=== PATIENT | male | born 1960 | race Caucasian/White ===

== ENCOUNTER 2022-05-23 05:00 | Observation (INO) ==
--- NOTE | 2022-05-15 08:24 | Anesthesiology Consultation ---
Date of Service May 15, 2022 Assessment & Plan (1) Encounter for pre-operative examination: Outpatient joint assessment: Patient is currently scheduled for inpatient pathway. If re-evaluated pending system levels during current pandemic/surgeon requests outpatient pathway, patient is not recommended candidate for outpatient joint program from anesthesia standpoint. Chart Review Chart Review: Acceptable Risk for Surgery and Patient seen in Pre Admission Testing Teaching & Discussion Pre-Anesthesia Teaching/Discussion Notes: Instructed NPO after midnight before surgery, except medications with 15 cc of water. Medication instructions provided according to the PAT guidelines. History Surgery Operation Date: 05/30/22 07:00 Proposed Procedures p Left Total Hip Arthroplasty with Dual Mobility Implants - Theodore Yuan MD Height/Weight Height: 5 ft 9 in Weight: 135.8 kg Allergies Allergy/AdvReac Type Severity Reaction Status Date / Time No Known Allergies Allergy Verified 05/11/22 11:04 Medications Home Medications Medication Instructions Recorded Confirmed Last Taken cyanocobalamin (vitamin B-12) 1,000 mcg IM MONTHLY 05/11/22 05/11/22 Unknown 1,000 mcg/mL injection solution emtricitabine 200 mg-tenofovir 1 tab PO QAM 05/11/22 05/11/22 Unknown alafenamide fumarate 25 mg tablet (Descovy) ferrous sulfate 325 mg (65 mg 325 mg PO QAM 05/11/22 05/11/22 Unknown iron) capsule,extended release pediatric multivitamin 1 tab PO QAM 05/11/22 05/11/22 Unknown (Flintstones Multivitamin chewable tablet) potassium 1 dose PO QAM 05/11/22 05/11/22 Unknown Past Medical History Medical History (Updated 05/15/22 @ 08:21 by Marifer Cordova PA-C) DDD (degenerative disc disease) History of hypertension resolved with wt loss Morbid obesity with BMI of 40.0-44.9, adult Patient denies h/o stroke, seizures, heart attack, heart failure, DM, blood clots or blood transfusions. Exercise / Class Metabolic Activity III < 4 Walking/Shop/Light housework (denies CP or SOB with usual activities, lives in ranch home) Past Family History Family History Other No family history of adverse response to anesthesia Past Surgical History Surgical History H/O gastric sleeve History of appendectomy History of colonoscopy History of left knee replacement History of lumbar fusion History of removal of cyst Rt foot History of tonsillectomy Past Anesthesia History No Hx of Anesthesia Complications and No Family Hx of Anesthesia Complications History of PONV No Hx of PONV and No Hx of Motion Sickness Social History Smoking Status: Former smoker Do You Dip or Chew Tobacco: No Smoking End Date: 20 years ago Hx Alcohol Use: Yes Alcohol type: wine alcohol intake frequency: a few times a week Hx Substance Use: No substance use type: does not use Review of Systems Occasional snoring, denies witnessed apneas. Patient denies chest pain, shortness of breath, dyspnea on exertion, reflux, fever, chills, cough, wheezing, or palpitations. Physical Exam Vital Signs Vitals BP 150/91 P 72 TEMP 98.2 SP02 97% on RA RESP 18 Physical Full cervical extension range of motion without pain TMD < 3 finger breadths Mallampati Score 3 Dentition: intact, denies chipped or loose teeth, caps/crowns, implants or bridges Lungs: normal respiratory effort. Clear throughout to auscultation, no adventitious breath sounds Cardiac: regular rate and rhythm, no murmurs noted Carotid arteries: negative bruit bilat Lab Results Anesthesia Preop Results Results Anesthesia Widget: WBC 5.53 K/ul (4.8-10.8) 05/15/22 Hgb 13.4 g/dl (14.0-18.0) L 05/15/22 Hct 39.4 % (40.1-51.0) L 05/15/22 Plt 192 K/uL (130-400) 05/15/22 Na 139 mmol/L (136-145) 05/15/22 K 3.9 mmol/L (3.5-5.1) 05/15/22 Cl 105 mmol/L (98-107) 05/15/22 CO2 28 mmol/L (21-32) 05/15/22 BUN 16 mg/dl (6-23) 05/15/22 Creat 0.79 mg/dl (0.6-1.4) 05/15/22 Glucose Level 84 mg/dl (70-99(Fasting)) 05/15/22 PT 10.4 Seconds (9.0-12.0) 05/15/22 PTT 25.9 Seconds (21.0-31.0) 05/15/22 INR 1.0 (0.9-1.1) 05/15/22 Urine Color Yellow 05/15/22 Urine Appearance Clear (Clear) 05/15/22 Urine pH 5.5 (4.5-7.5) 05/15/22 Urine Specific [place] 1.021 (1.000-1.030) 05/15/22 Urine Protein Negative (Negative) 05/15/22 Urine Glucose (UA) Negative (Negative) 05/15/22 Urine Ketones Negative (Negative) 05/15/22 Urine Blood 1+ (Negative) H 05/15/22 Urine Nitrite Negative (Negative) 05/15/22 Urine Bilirubin Negative (Negative) 05/15/22 Urine Urobilinogen Negative (Negative) 05/15/22 Urine Leukocyte Esterase Negative (Negative) 05/15/22 Urine WBC (Auto) 1-5 /hpf (0-5) 05/15/22 Urine RBC (Auto) 0-4 /hpf (0-4) 05/15/22 Urine Hyaline Casts (Auto) 1-5 /lpf (0-5) 05/15/22 Urine Epithelial Cells (Auto) 5-10 /lpf (0-5) H 05/15/22 Urine Bacteria (Auto) Negative (Negative) 05/15/22 Blood Type A Positive 05/15/22 Antibody Screen NEGATIVE 05/15/22 Testing Electrocardiogram Date: 05/15/22 NSR with 1st degree AV block, rate 68 bpm Chest X-Ray Date: 05/15/22 Lung volumes are normal. Lungs are clear. There is no pneumothorax or pleural effusion. Cardiac size is normal. Mediastinal contours are normal. There is no evidence for pulmonary edema. IMPRESSION: No acute cardiopulmonary findings. COVID-19 Risk Screen Screening Information COVID-19 Screen Date: 05/15/22 Exposure 21 Days Family/Household +COVID Last 21 Days: No Exposure 10 Days Any COVID Exposure Last 10 Days: No Symptoms Last 10 Days Experienced COVID Sx Last 10 Days: No + COVID 0-90 Days COVID + in Last 0-90 Days: No
[2022-05-23] MEDS ORDERED: LR 60ML/HR IV SCH (06:00)
[2022-05-23] MEDS ORDERED: ROPIVACAINE 0.5% HCL/PF 150 MG, BUPIVACAINE 0.75% MPF 20 ML, EPINEPHrine 0.15 MG, Ketor... INFIL SCH (06:00)
[2022-05-23] MEDS ORDERED: TRANEXAMIC ACID 1,000 MG **IV Pre-op IV SCH (06:00)
[2022-05-23] MEDS ORDERED: TRANEXAMIC ACID 1,000 MG **IV Intra-op IV SCH (06:00)
[2022-05-23] MEDS ORDERED: LR 500ML BOLUS, THEN 15ML/HR IV SCH (06:00)
--- NOTE | 2022-05-23 06:18 | History & Physical Bridge Note ---
Date of Service May 23, 2022 History & Physical Bridge Note I have examined the patient, reviewed the History & Physical and in the interval since the performance of the History & Physical I have noted the following changes of clinical significance:consent obained/site verified. no changes noted
[2022-05-23] MEDS ORDERED: BUPIVACAINE 0.5 % 5 MG/1 ML PF 10ML VIAL ONE (06:24)
[2022-05-23] MEDS ORDERED: MIDAZOLAM HCL 1 MG/ML 2ML VIAL ONE (06:37)
[2022-05-23] MEDS ORDERED: fentaNYL citrate 100 MCG/2 ML VIAL ONE (06:37)
[2022-05-23] MEDS ORDERED: ONDANSETRON INJ 2 MG/ML 2 ML VIAL IV PRN ×2 (07:09→11:12)
[2022-05-23] MEDS ORDERED: PROMETHAZINE HCL 6.25 MG in SODIUM CHLORIDE 0.9% 50 ML IV PRN (07:09)
[2022-05-23] MEDS ORDERED: fentaNYL citrate 100 MCG/2 ML VIAL IV PRN (07:09)
[2022-05-23] MEDS ORDERED: ePHEDrine sulfate 50 MG/ML AMP IV PRN (07:09)
[2022-05-23] MEDS ORDERED: ATROPINE SULFATE 0.1 MG/ML 10ML SYR IV PRN (07:09)
[2022-05-23] MEDS ORDERED: KETAMINE 50 MG/5 ML SYRINGE ONE (07:14)
[2022-05-23] MEDS ORDERED: diphenhydrAMINE 50 MG/ML VIAL ONE (07:23)
[2022-05-23] MEDS ORDERED: PROPOFOL IV EMULSION 10 MG/ML 20 ML VIAL IV ONE (08:42)
[2022-05-23] MEDS ORDERED: VASOPRESSIN 20 UNIT/ML VIAL ONE (08:43)
[2022-05-23] MEDS ORDERED: LIDOCAINE 2% 20 MG/ML 5 ML SYR IV ONE (08:43)
[2022-05-23] MEDS ORDERED: PHENYLEPHRINE HCL 10 MG/ML VIAL ONE (08:43)
--- NOTE | 2022-05-23 09:10 | Post Operative Brief Note ---
Immediate Post Op Note v1 Date of Surgery May 23, 2022 Pre & Post Diagnosis Operation Date: 05/23/22 07:00 Pre-Op Diagnosis: Left Hip End-Stage Osteoarthritis Post-Op Diagnosis: Left Hip End-Stage Osteoarthritis I identified the patient and participated in the time-out.: Yes Procedure Operation Date: 05/23/22 07:00 Actual Procedures p Left Total Hip Arthroplasty with Dual Mobility Implants--Uncemented(Left) - Theodore Yuan MD Surgeon Theodore Yuan MD Prepared Foods Supervisor Nivia/Harsha Estimated Blood Loss 200 Findings Consistent with Post-Op Diagnosis severe DJD/excellent stability will standard implants
--- NOTE | 2022-05-23 09:24 | Operative Report ---
Post Operative Report Pre & Post Diagnosis Operation Date: 05/23/22 07:00 Pre-Op Diagnosis: Left Hip End-Stage Osteoarthritis Post-Op Diagnosis: Left Hip End-Stage Osteoarthritis I identified the patient and participated in the time-out.: Yes Procedure Operation Date: 05/23/22 07:00 Actual Procedures p Left Total Hip Arthroplasty with Dual Mobility Implants--Uncemented(Left) - Theodore Yuan MD Surgeon NAVEED Yuan MD Conversion Developer Nivia/Harsha [place] Estimated Blood Loss 200 Findings Consistent with Post-Op Diagnosis see operative report Specimens see operative report Drains none Complications none Disposition Accompanied Patient To Recovery: Yes Indications This 62 year old male presented to the office complaints of persisting left hip pain. He had tried conservative care measures without improvement. He elected to proceed with surgical intervention after being educated about potential risks and outcomes. Preoperative imaging was obtained. Description of Procedure Patient was administered a spinal anesthetic and then taken to the operating room where he was given sedation. He was prepped and draped in the usual sterile fashion. Please see Dr. Yuan's operative report for specifics of the procedure. I was present for the entire case from initial patient positioning through final wound closure. Assistance was provided in tissue retraction, hemostasis, trial implant placement, final implant placement, and final wound closure. Patient was taken to the recovery room in satisfactory condition. I attest to the content of the Intraoperative Record and any orders documented therein. Any exceptions are noted below.
--- NOTE | 2022-05-23 09:34 | Operative Report (OR) ---
DATE OF PROCEDURE: 05/23/2022 SURGEON: Theodore Yuan M.D. JAVA DEVELOPER: Dr. Gonzáles. SECOND JAVA DEVELOPER: Gurinder Mcleod PA-C PREOPERATIVE DIAGNOSIS: Severe osteoarthritis, left hip. POSTOPERATIVE DIAGNOSIS: Severe osteoarthritis, left hip. OPERATION PERFORMED: Noncemented left total hip arthroplasty. PERIOPERATIVE SITUATION: Medically cleared male with intractable hip pain. At this point in time, he wants to proceed with surgical treatment. He understands the risks and consequences, particularly including instability with his back. Options were discussed about using a dual implant technique if needed. SUMMARY OF IMPLANTS: A size 54 shell acetabular cup, hole eliminator size 25-mm screw, 36 x 54 neutral liner, 4 standard Tri-Lock, 36+5 ceramic head, all standard implants. Dual mobility was not necessary based on the superb stability that was present at the time of EUA. DESCRIPTION OF PROCEDURE: The patient was appropriately identified, site verified, and consent verified. Antibiotics were confirmed as being given. The left lower extremity was prepped and draped in the usual routine fashion. The posterior approach to the hip was then made. Care was taken to protect the deep tissues. The IT band and gluteal flavia fascia was then split and the Charnley retractor placed as he is a very large man. The short external rotators were then released and the capsule was then T'd. The hip was then dislocated and the femoral neck resected. Serial reaming was then carried up to 54 and a 54 cup impacted into appropriate anteversion and inclination. The trial liner was seated. Neck was then delivered into the wound, and using a box spinner, canal finder, and lateralizing rasp, serial broaching up to a size 4 was placed. Trial reduction with standard implants and a +5 head revealed near symmetry and leg lengths and superb excellent stability. As a result, it was deemed appropriate to stick with those implants. The hip was then dislocated and all trial elements were removed. The hole eliminator seated, permanent liner seated, permanent head and stem seated. The hip reduced and it was stable in all planes. The leg lengths were excellent. The wound was then irrigated with Betadine and Pulsavac and then closed in layers using #2 Vicryl, 2-0 Vicryl, and stainless steel clips. Retention sutures were placed. Appropriate dressing applied. The patient was then transferred to recovery room in satisfactory condition having tolerated the procedure well. ESTIMATED BLOOD LOSS: 200 mL. CRYSTALLOID: Per anesthesia. PATHOLOGY: Pending on bone and DVT prophylaxis per protocol. Job ID: [id number] [facility]
--- NOTE | 2022-05-23 09:58 | Anesthesiology Progress Note ---
Date of Service May 23, 2022 Anesthesia Post Procedure Vital Signs Vital Signs: Temp Pulse Pulse Resp BP BP Pulse Ox 05/23/22 09:50 36.4 C L 64 15 130/83 98 05/23/22 09:40 62 12 139/66 100 05/23/22 09:30 57 L 18 126/75 100 05/23/22 09:20 36.5 C 66 12 132/75 99 05/23/22 05:42 37 C 79 18 162/94 H 96 O2 Del Method O2 Flow Rate 05/23/22 09:50 Room Air 05/23/22 09:40 Oxymask 4 05/23/22 09:30 Oxymask 4 05/23/22 09:20 Oxymask 6 05/23/22 05:42 Room Air Pain Intensity Left Hip: Pain Intensity: 6 Transfer of Care Handoff Completed per policy Notes Mental Status: alert / awake / arousable Patient Amnestic to Procedure: Yes Nausea / Vomiting: adequately controlled Pain: adequately controlled Airway Patency, RR, SpO2: stable & adequate BP & HR: stable & adequate Hydration State: stable & adequate Neuraxial Anesthesia: was administered and sensory block is resolving Anesthetic Complications: no major complications apparent and Pt Satisfied with anesthetic care
--- NOTE | 2022-05-23 09:58 | XRay Report ---
XR pelvis 1V supine CLINICAL HISTORY: Status post total left arthroplasty. COMPARISON STUDY: Pelvis and left hip radiographs April 29, 2022. FINDINGS: Alignment of the total left hip arthroplasty is anatomic. There is no periprosthetic fractu re. No unexpected radiopaque foreign bodies present. Skin yeny are partially imaged. There are pos toperative findings within the lumbosacral spine. IMPRESSION: Expected findings following total left hip arthroplasty. ACT 112: Negative or not required by law. Electronically signed by: Abel Hernandez M.D. 05/23/2022 9:57 AM
--- NOTE | 2022-05-23 10:10 | Discharge Summary (DS) ---
DATE OF ADMISSION: 05/23/2022. DATE OF DISCHARGE: Potentially 05/24/2022. CHIEF COMPLAINT: Left hip pain. HISTORY OF PRESENT ILLNESS: Underwent elective left total hip replacement. Hospital course to date h as been uneventful. His postop x-rays look excellent. ALLERGIES: None. PREOP MEDICATIONS: Include vitamins, Descovy. PAST ANESTHESIA HISTORY: Is free. He has had multiple surgeries including spine surgery with fusion and knee replacement. PAST MEDICAL HISTORY: Right hip osteoarthritis, left hip, obesity, low back pain. SURGICAL PROCEDURES: Include tonsillectomy, cyst excision, left knee arthroplasty, gastric bypass beny faby, appendectomy, back fusion. IMAGES: Postop x-rays look excellent. ASSESSMENT: Postoperative total hip replacement on the left. PLAN: For discharge to home tomorrow if he does well with PT/OT. Job ID: [id number]
[2022-05-23] MEDS ORDERED: ALUMINUM/MAGNESIUM SUSP 30 ML UDC PO PRN (11:12)
[2022-05-23] MEDS ORDERED: diphenhydrAMINE 50 MG/ML VIAL IV PRN (11:12)
[2022-05-23] MEDS ORDERED: bisacodyL 10 MG SUPP PR PRN (11:12)
[2022-05-23] MEDS ORDERED: HYDROmorphone INJ 0.5 MG/0.5 ML SYR IV PRN (11:12)
[2022-05-23] MEDS ORDERED: MAGNESIUM HYDROXIDE SUSP 30 ML UDC PO PRN (11:12)
[2022-05-23] MEDS ORDERED: METOCLOPRAMIDE HCL INJ 5 MG/ML 2 ML VIAL IV PRN (11:12)
[2022-05-23] MEDS ORDERED: VANCOMYCIN CONSULT ACTIVE PRN (11:12)
[2022-05-23] MEDS ORDERED: oxyCODONE HCL IR 5 MG TAB (IMMEDIATE RELEASE) PO PRN (11:12)
[2022-05-23] MEDS ORDERED: TAMSULOSIN HCL 0.4 MG CAP PO PRN (11:12)
[2022-05-23] MEDS ORDERED: NALOXONE HCL 0.4 MG/1 ML VIAL/CARP IV PRN (11:12)
[2022-05-23] MEDS: SODIUM CHLORIDE 0.9% 1000ML 1,000 ML IV SCH ×2 (12:22→20:27)
[2022-05-23] MEDS: KETOROLAC TROMETHAMINE 15 MG/ML VIAL IV SCH ×3 (12:34→23:45)
[2022-05-23] MEDS ORDERED: ORTHO WARFARIN NOMOGRAM SCH (14:00)
[2022-05-23] MEDS ORDERED: Nursing to Pharmacy Communication SCH (14:15)
[2022-05-23] MEDS: ACETAMINOPHEN 500 MG TAB PO SCH ×2 (15:31→22:31)
[2022-05-23] MEDS ORDERED: WARFARIN SOD 5 MG TAB PO ONE (16:00)
[2022-05-23] MEDS: FERROUS GLUCONATE 324 MG TAB PO SCH (17:28)
[2022-05-23] MEDS: ASCORBIC ACID 500 MG TAB PO SCH (17:28)
[2022-05-23] MEDS: ceFAZolin 2000MG 2,000 MG/15 ML SYR IV SCH ×2 (17:28→23:45)
[2022-05-23] MEDS ORDERED: VANCOMYCIN HCL 2,000 MG in SODIUM CHLORIDE 0.9% 500 ML IV SCH (19:30)
[2022-05-23] MEDS: DOCUSATE SODIUM 100 MG CAP PO SCH (20:44)
[2022-05-23] MEDS ORDERED: SENNA 8.6 MG TAB PO SCH (21:00)
[2022-05-24] MEDS: ACETAMINOPHEN 500 MG TAB PO SCH (05:17)
[2022-05-24] MEDS: KETOROLAC TROMETHAMINE 15 MG/ML VIAL IV SCH (05:17)
[2022-05-24 07:21] LABS: Basophils # (auto) 0.03 K/uL (0-0.2); Basophils % (auto) 0.3 %; Eosinophils # (auto) 0.02 K/uL (0-0.50); Eosinophils % (auto) 0.2 %; Hemoglobin 12.5 g/dl (14.0-18.0); Immature Granulocytes # (auto) 0.04 K/uL (0.00-0.02); Immature Granulocytes % (auto) 0.4 %; Lymphocytes # (auto) 2.29 K/uL (1.2-3.4); Mean Corpuscular Hemoglobin 33.6 pg (25.0-34.0); Mean Corpuscular Hgb Conc 34.7 g/dL (32.0-36.0); Mean Corpuscular Volume 96.8 fL (80.0-100.0); Mean Platelet Volume 9.5 fL (9.4-12.4); Monocytes # (auto) 0.69 K/uL (0.24-0.82); Monocytes % (auto) 6.6 %; Neutrophils # (auto) 7.32 K/uL (1.4-6.5); Neutrophils % (auto) 70.5 %; Platelet Count 190 K/uL (130-400); RDW Coefficient of Variation 12.7 % (11.5-14.5); RDW Standard Deviation 45.1 fL (36.4-46.3); Red Blood Count 3.72 M/uL (4.63-6.08); White Blood Count 10.39 K/ul (4.8-10.8)
[2022-05-24 07:30] LABS: INR 1.1 (0.9-1.1); Prothrombin Time 11.4 Seconds (9.0-12.0)
--- NOTE | 2022-05-24 07:31 | Progress Notes ---
SUBJECTIVE: The patient did well overnight. He denies any chest pain, shortness of breath, fever, c hills, nausea, vomiting or headache. He was sitting up in the chair. His dressing has been changed and his Prevena wound VAC has been placed. At this point, he feels very comfortable. He notes his hip pain is markedly diminished. OBJECTIVE: On neurovascular check, femoral sciatic nerve is normal. Calves nontender. LABORATORY DATA: A.m. labs are pending. ASSESSMENT AND PLAN: Doing well. Discharge to home today. Will stay with the local nurse, a cousin who lives about a mile away rather than going back to [place] which is [place] based on the weather. H e will return in one week for discontinuation of the Prevena. Dictated, not read. Job ID: [id number]
[2022-05-24] MEDS: FERROUS GLUCONATE 324 MG TAB PO SCH (07:33)
[2022-05-24] MEDS: ASCORBIC ACID 500 MG TAB PO SCH (07:33)
[2022-05-24] MEDS: DOCUSATE SODIUM 100 MG CAP PO SCH (07:34)
[2022-05-24 07:41] LABS: BUN Creatinine Ratio 14.5 (10-20); Calcium 8.2 mg/dl (8.5-10.1); Creatinine Clr Calc Pharmacy 126.7 ml/min; Est GFR (African American) 110.8 ml/min; Est GFR (Non-African American) 95.6 ml/min; Potassium 3.8 mmol/L (3.5-5.1)
[2022-05-24] MEDS ORDERED: dexAMETHasone 10 MG in SYRINGE 0 ML IV SCH (08:00)
--- NOTE | 2022-05-24 08:02 | Orthopedic Progress Note ---
Date of Service May 24, 2022 Assessment & Plan (1) Status post total hip replacement, left: Plan: Patient's dressing was changed by me this morning. Prevena wound VAC was placed. He will leave this in place for the next 7 days. Follow-up in the office with me on Saturday at 1 PM for removal. He is aware. Precautions were reviewed. Prescriptions for Zithromax, Coumadin and Percocet were sent to his pharmacy. He anticipates that he will be staying locally for the night due to the weather. Importance of using his walker and using his abduction pillow was discussed with him. Written discharge instructions were provided. Postop appointment for staple removal in 2 weeks has already been made. He will receive his Coumadin dose today prior to departure. Admission and Anticipated Discharge Date Admission Date: May 23, 2022 Subjective Patient was seen in his room this morning. He has no complaints. He is sitting in a chair and states he is feeling quite well. He is ready to go home today. He denies any chest pain, shortness of breath, nausea, vomiting, or abdominal pain. Review of Systems Review of Systems: Unchanged from yesterday. Physical Exam Physical Exam: General: Well-developed, well-nourished, middle-aged male, in no acute distress. Sitting in the chair. Alert and oriented. Conversive. Skin: Warm and dry with good turgor. Postsurgical dressing is in place. Upon removal, he has scant drainage on the inner dressings. There is no saturation. No active bleeding at this time. [place] are intact. Wound edges are well approximated. Expected postoperative edema. No ecchymosis. Musculoskeletal: Patient has intact motor function to the hip, knee, and ankle. He is able to stand fairly easily from chair to his walker. Neurologic: Gross sensation is intact across the left leg by soft touch. Peripheral pulses are 2+. Results & Data ([facility]) Vital Signs (Past 12 Hours) Vital Signs Temp Pulse Resp BP Pulse Ox O2 Del Method 05/24/22 02:27 36.7 C 68 18 130/81 97 Room Air 05/23/22 22:23 36.8 C 77 18 168/80 H 95 Room Air 05/23/22 19:58 36.9 C 89 18 122/77 96 Room Air Laboratory Results H&H obtained today are 12.5 and 36.0. They are stable. White count 10.39. INR is 1.1. PRP is entirely unremarkable. BUN and creatinine are normal.
[2022-05-24] MEDS ORDERED: MULTIVITAMIN CHEWABLE TAB PO SCH (09:00)
[2022-05-24] MEDS ORDERED: WARFARIN SOD 5 MG TAB PO STA (10:18)
[2022-05-30] MEDS ORDERED: ROPIVACAINE 0.5% HCL/PF 150 MG, BUPIVACAINE 0.75% MPF 20 ML, EPINEPHrine 0.15 MG, Ketor... INFIL SCH (06:00)
== END 2022-05-24 11:24 | disposition home health service (06) ==
LOC: ASU 05:00 → PACUINP 05:00 → 3N 12:00

== ENCOUNTER 2024-04-29 06:42 | Observation (INO) ==
--- NOTE | 2023-09-25 09:41 | PAT Medication Instructions ---
Medication Instructions Date of Service September 25, 2023 Home Medications Medication Instructions Recorded oxycodone-acetaminophen 5 mg-325 1 - 2 tab PO Q6H PRN pain #24 tabs 05/23/22 mg tablet (Percocet) warfarin 2 mg tablet 4 mg (2 x 2 mg) PO DAILY #60 tabs 05/23/22 azithromycin 250 mg tablet See Rx Instructions PO .COMPLEX #6 05/24/22 (Zithromax) tabs Medication List: cyanocobalamin (vitamin B-12) 1,000 mcg/mL injection solution 1,000 mcg IM MONTHLY emtricitabine 200 mg-tenofovir alafenamide fumarate 25 mg tablet (Descovy) 1 tab PO QAM ferrous sulfate 325 mg (65 mg iron) capsule,extended release 325 mg PO QAM pediatric multivitamin (Flintstones Multivitamin chewable tablet) 1 tab PO QAM potassium 1 dose PO QAM oxycodone-acetaminophen 5 mg-325 mg tablet (Percocet) 1 - 2 tab PO Q6H PRN pain warfarin 2 mg tablet 4 mg (2 x 2 mg) PO DAILY Medical Marijuana 1 dose PO DIRECTED PRN Pain metoprolol succinate 50 mg tablet,extended release 24 hr 50 mg PO BID MEDICATION INSTRUCTIONS: Continue as directed cyanocobalamin (vitamin B-12) 1,000 mcg/mL injection solution 1,000 mcg IM MONTHLY ASK your prescriber and surgeon warfarin 2 mg tablet 4 mg (2 x 2 mg) PO DAILY DO NOT take the morning of surgery ferrous sulfate 325 mg (65 mg iron) capsule,extended release 325 mg PO QAM pediatric multivitamin (Flintstones Multivitamin chewable tablet) 1 tab PO QAM potassium 1 dose PO QAM Medical Marijuana 1 dose PO DIRECTED PRN Pain Take morning of surgery With a small sip of water, OTHERWISE NOTHING TO EAT OR DRINK AFTER MIDNIGHT: metoprolol succinate 50 mg tablet,extended release 24 hr 50 mg PO BID emtricitabine 200 mg-tenofovir alafenamide fumarate 25 mg tablet (Descovy) 1 tab PO QAM oxycodone-acetaminophen 5 mg-325 mg tablet (Percocet) 1 - 2 tab PO Q6H PRN pain (if needed) Take evening before surgery metoprolol succinate 50 mg tablet,extended release 24 hr 50 mg PO BID Medical Marijuana 1 dose PO DIRECTED PRN Pain (may use day prior to surgery as needed) oxycodone-acetaminophen 5 mg-325 mg tablet (Percocet) 1 - 2 tab PO Q6H PRN pain Other Notes If you have any questions please call us at [phone] or [phone] or [phone] or [phone]
--- NOTE | 2023-09-30 10:31 | Anesthesiology Consultation ---
Date of Service September 30, 2023 Assessment & Plan (1) Encounter for pre-operative examination: Plan - check coags STAT am DOS. - awaiting cardiology clearance given ongoing work-up: optimization form to be faxed to Dr. Rogel with [facility]. Patient and surgeon's office made aware. - upcoming medical clearance per patient. - Outpatient joint assessment: Patient is currently scheduled for inpatient pathway. If re-evaluated and patient/surgeon requests outpatient pathway, patient is not recommended candidate for outpatient joint program from anesthesia standpoint. Chart Review Chart Review: Pending: Refer to Additional Notes / Consult section and Patient seen in Pre Admission Testing Teaching & Discussion Pre-Anesthesia Teaching/Discussion Notes: Instructed NPO after midnight before surgery, except medications with 15 cc of water. Medication instructions provided according to the PAT guidelines. History Surgery Operation Date: 10/23/23 09:30 Proposed Procedures p Right Total Knee Arthroplasty - Theodore Yuan MD Height/Weight Height: 5 ft 8 in Weight: 142.7 kg Allergies Allergy/AdvReac Type Severity Reaction Status Date / Time No Known Allergies Allergy Verified 09/16/23 15:08 Medications Home Medications Medication Instructions Recorded Confirmed Last Taken cyanocobalamin (vitamin B-12) 1,000 mcg IM MONTHLY 05/11/22 09/16/23 05/21/22 10:30 1,000 mcg/mL injection solution emtricitabine 200 mg-tenofovir 1 tab PO QAM 05/11/22 09/16/23 05/21/22 10:00 alafenamide fumarate 25 mg tablet (Descovy) ferrous sulfate 325 mg (65 mg 325 mg PO QAM 05/11/22 09/16/23 05/21/22 10:00 iron) capsule,extended release pediatric multivitamin 1 tab PO QAM 05/11/22 09/16/23 05/21/22 10:00 (Flintstones Multivitamin chewable tablet) potassium 1 dose PO QAM 05/11/22 09/16/23 05/21/22 10:00 oxycodone-acetaminophen 5 mg-325 1 - 2 tab PO Q6H PRN pain #24 tabs 05/23/22 09/16/23 Unknown mg tablet (Percocet) warfarin 2 mg tablet 4 mg (2 x 2 mg) PO DAILY #60 tabs 05/23/22 09/16/23 Unknown azithromycin 250 mg tablet See Rx Instructions PO .COMPLEX #6 05/24/22 09/16/23 Unknown (Zithromax) tabs Medical Marijuana 1 dose PO DIRECTED PRN Pain 09/16/23 09/16/23 Unknown metoprolol succinate 50 mg 50 mg PO BID 09/16/23 09/16/23 Unknown tablet,extended release 24 hr Past Medical History Medical History (Updated 09/30/23 @ 10:44 by Marifer Cordova PA-C) Atrial fibrillation one episode in Jul 2023 > follows with Dr. 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 Exercise / Class Metabolic Activity II 4-5 Yardwork/Stairs/Walk up hill (denies chest discomfort or shortness of breath with 1 FOS) Past Family History Family History Other No family history of adverse response to anesthesia Past Surgical History Surgical History H/O gastric sleeve History of appendectomy History of colonoscopy History of left knee replacement History of lumbar fusion History of removal of cyst Rt foot History of tonsillectomy History of total hip arthroplasty left 05/23/22 SAB at L4-L5 x 2 attempts. [facility]. Past Anesthesia History No Hx of Anesthesia Complications and No Family Hx of Anesthesia Complications History of PONV No Hx of PONV and No Hx of Motion Sickness Social History Smoking Status: Former smoker Do You Dip or Chew Tobacco: No Smoking End Date: 20 yrs ago Hx Alcohol Use: Yes Alcohol type: beer, wine and hard liquor alcohol intake frequency: a few times a week Hx Substance Use: Yes substance use type: marijuana Substance Use Type Other:: medical card > prn use-advised Last Used Substance: Days (ago) Review of Systems Patient denies chest pain, shortness of breath, dyspnea on exertion, snoring, witnessed apneas, reflux, fever, chills, cough, wheezing, or palpitations. Physical Exam Vital Signs Vitals BP 126/84 P 65 TEMP 97.8 SP02 98% on RA RESP 18 Physical Patient resting comfortably in chair in no acute distress, alert and oriented, responding appropriately throughout visit Full cervical extension range of motion without pain TMD < 3 finger breadths Mallampati Score 3 Dentition: intact, denies chipped or loose teeth, caps/crowns, implants or bridges Lungs: normal respiratory effort. Good air movement, clear throughout to auscultation, no adventitious breath sounds Cardiac: regular rate and rhythm, no murmurs noted Carotid arteries: negative bruit bilat Lab Results Anesthesia Preop Results Results Anesthesia Widget: WBC 5.69 K/ul (4.8-10.8) 09/30/23 Hgb 14.5 g/dl (14.0-18.0) 09/30/23 Hct 43.0 % (42.0-52.0) 09/30/23 Plt 211 K/uL (130-400) 09/30/23 Na 136 mmol/L (136-145) 09/30/23 K 4.0 mmol/L (3.5-5.1) 09/30/23 Cl 104 mmol/L (98-107) 09/30/23 CO2 24 mmol/L (21-32) 09/30/23 BUN 17 mg/dl (6-23) 09/30/23 Creat 0.94 mg/dl (0.6-1.4) 09/30/23 Glucose Level 95 mg/dl (70-99(Fasting)) 09/30/23 PT 10.4 Seconds (9.0-12.0) 09/30/23 PTT 27 Seconds (21-31) 09/30/23 INR 0.9 (0.9-1.1) 09/30/23 Urine Color Yellow 09/30/23 Urine Appearance Clear (Clear) 09/30/23 Urine pH 5.0 (4.5-7.5) 09/30/23 Urine Specific [place] 1.017 (1.000-1.030) 09/30/23 Urine Protein Negative (Negative) 09/30/23 Urine Glucose (UA) Negative (Negative) 09/30/23 Urine Ketones Negative (Negative) 09/30/23 Urine Blood Trace (Negative) H 09/30/23 Urine Nitrite Negative (Negative) 09/30/23 Urine Bilirubin Negative (Negative) 09/30/23 Urine Urobilinogen Negative (Negative) 09/30/23 Urine Leukocyte Esterase Negative (Negative) 09/30/23 Urine WBC (Auto) 0-5 /hpf (0-5) 09/30/23 Urine RBC (Auto) 3-5 /hpf (0-2) H 09/30/23 Urine Hyaline Casts (Auto) 0-2 /lpf (0-2) 09/30/23 Urine Epithelial Cells (Auto) 0-2 /hpf (0-2) 09/30/23 Urine Bacteria (Auto) None Seen (None Seen) 09/30/23 Blood Type A Positive 09/30/23 Antibody Screen NEGATIVE 09/30/23 Testing Electrocardiogram Date: 09/30/23 NSR, rate 61 bpm Chest X-Ray Date: 09/30/23 No acute process. Echocardiogram Date: 07/19/23 EF 55-60% Mild LVH Mild mitral regurgitation Mild aortic regurgitation
--- NOTE | 2024-04-16 14:13 | Anesthesiology Consultation ---
Date of Service April 16, 2024 Assessment & Plan (1) Encounter for pre-operative examination: - cardiology office note 03/24/24: "...cardiac catheterization (11/14/2023)...normal sinus rhythm...[id number] score of 0, he is not on Eliquis...will decrease dose of metoprolol succinate to 50 mg po...advised to have sleep study rule out obstructive sleep apnea, he declined...low to intermediate risk for preoperative cardiac complications for orthopedic knee surgery, I would proceed with surgery because the benefits outweigh the risks. No further cardiac workup is recommended at this point in time..." - cardiology clearance 03/23/24: "...low to intermediate risk..." - patient states had syncopal event over one month ago after standing rapidly- states cardiology has since reduced antihypertensive dose-denies any further episodes syncope or presyncope, denies dizziness. - Outpatient joint assessment: Patient is currently scheduled for inpatient pathway. If re-evaluated and patient/surgeon requests outpatient pathway, patient is not advised candidate for outpatient joint program from anesthesia standpoint. Chart Review Chart Review: Acceptable Risk for Surgery and Patient seen in Pre Admission Testing Teaching & Discussion Pre-Anesthesia Teaching/Discussion Notes: Instructed NPO after midnight before surgery, except medications with 15 cc of water. Medication instructions provided according to the PAT guidelines. History Surgery Operation Date: 10/23/23 09:30 Proposed Procedures p Right Total Knee Arthroplasty - Theodore Yuan MD Operation Date: 04/29/24 09:10 Proposed Procedures p Right Total Knee Arthroplasty - Theodore Yuan MD Height/Weight Height: 5 ft 8 in Weight: 144 kg Allergies Allergy/AdvReac Type Severity Reaction Status Date / Time No Known Allergies Allergy Verified 04/16/24 10:50 Medications Home Medications Medication Instructions Recorded Confirmed Last Taken cyanocobalamin (vitamin B-12) 1,000 mcg IM MONTHLY 05/11/22 04/16/24 05/21/22 10:30 1,000 mcg/mL injection solution emtricitabine 200 mg-tenofovir 1 tab PO QAM 05/11/22 04/16/24 05/21/22 10:00 alafenamide fumarate 25 mg tablet (Descovy) ferrous sulfate 325 mg (65 mg 325 mg PO QAM 1204/16/24 05/21/22 10:00 iron) capsule,extended release pediatric multivitamin 1 tab PO QAM 05/11/22 04/16/24 05/21/22 10:00 (Flintstones Multivitamin chewable tablet) azithromycin 250 mg tablet See Rx Instructions PO .COMPLEX #6 05/24/22 09/16/23 Unknown (Zithromax) tabs Medical Marijuana 1 dose PO DIRECTED PRN Pain 09/16/23 04/16/24 Unknown metoprolol succinate 50 mg 25 mg PO BID 04/16/24 04/16/24 Unknown tablet,extended release 24 hr Past Medical History Medical History (Updated 04/16/24 @ 14:43 by Marifer Cordova PA-C) Atrial fibrillation -warfarin d/c by damage appraiser DDD (degenerative disc disease) History of COVID-19 (~2021) not hospitalized > symptoms resolved History of exposure to HIV partner with HIV diagnosis-on descovy Hypertension controlled, stable per pt Morbid obesity with BMI of 40.0-44.9, adult Patient denies h/o stroke, seizures, heart attack, heart failure, DM, blood clots/DVTs or blood transfusions. Exercise / Class Metabolic Activity II 4-5 Yardwork/Stairs/Walk up hill (denies chest discomfort or shortness of breath with one flight of stairs) Past Family History Family History Other No family history of adverse response to anesthesia Past Surgical History Surgical History H/O gastric sleeve 2016 History of appendectomy History of cardiac cath 12/2023>[facility]/no stents (follows with [facility]) History of colonoscopy History of left knee replacement History of lumbar fusion History of removal of cyst Rt foot History of tonsillectomy History of tooth extraction History of total hip arthroplasty left 05/23/22 SAB at L4-L5 x 2 attempts. [facility]. Past Anesthesia History No Hx of Anesthesia Complications and No Family Hx of Anesthesia Complications History of PONV No Hx of PONV and No Hx of Motion Sickness Social History Smoking Status: Former smoker Do You Dip or Chew Tobacco: No Smoking End Date: 30 +yrs ago Hx Alcohol Use: Yes Alcohol type: beer and wine alcohol intake frequency: a few times a week substance use type: does not use Substance Use Type Other:: medical card > prn use-advised Review of Systems Patient denies chest pain, shortness of breath, dyspnea on exertion, snoring, witnessed apneas, reflux, fever, chills, cough, wheezing, or palpitations. Physical Exam Vital Signs Vitals BP 147/86 P 79 TEMP 98.4 SP02 95% on RA RESP 18 Physical Patient resting comfortably in chair in no acute distress, alert and oriented, responding appropriately throughout visit Full cervical extension range of motion without pain TMD < 3 finger breadths Mallampati Score 3 Dentition: intact, denies chipped or loose teeth, caps/crowns, implants or bridges Lungs: normal respiratory effort. Good air movement, clear throughout to auscultation, no adventitious breath sounds Cardiac: regular rate and rhythm, no murmurs noted Carotid arteries: negative bruit bilat Lab Results Anesthesia Preop Results Results Anesthesia Widget: WBC 6.93 K/ul (4.8-10.8) 04/16/24 Hgb 12.8 g/dl (14.0-18.0) L 04/16/24 Hct 37.3 % (42.0-52.0) L 04/16/24 Plt 180 K/uL (130-400) 04/16/24 Na 137 mmol/L (136-145) 04/16/24 K 4.0 mmol/L (3.5-5.1) 04/16/24 Cl 105 mmol/L (98-107) 04/16/24 CO2 26 mmol/L (21-32) 04/16/24 BUN 12 mg/dl (6-23) 04/16/24 Creat 0.93 mg/dl (0.6-1.4) 04/16/24 Glucose Level 90 mg/dl (70-99(Fasting)) 04/16/24 PT 10.4 Seconds (9.0-12.0) 04/16/24 PTT 25 Seconds (21-31) 04/16/24 INR 1.0 (0.9-1.1) 04/16/24 Urine Color Yellow 04/16/24 Urine Appearance Clear (Clear) 04/16/24 Urine pH 5.5 (4.5-7.5) 04/16/24 Urine Specific [place] 1.017 (1.000-1.030) 04/16/24 Urine Protein Negative (Negative) 04/16/24 Urine Glucose (UA) Negative (Negative) 04/16/24 Urine Ketones Negative (Negative) 04/16/24 Urine Blood Trace (Negative) H 04/16/24 Urine Nitrite Negative (Negative) 04/16/24 Urine Bilirubin Negative (Negative) 04/16/24 Urine Urobilinogen Negative (Negative) 04/16/24 Urine Leukocyte Esterase Negative (Negative) 04/16/24 Urine WBC (Auto) 0-5 /hpf (0-5) 04/16/24 Urine RBC (Auto) 0-2 /hpf (0-2) 04/16/24 Urine Hyaline Casts (Auto) 0-2 /lpf (0-2) 04/16/24 Urine Epithelial Cells (Auto) 0-2 /hpf (0-2) 04/16/24 Urine Bacteria (Auto) None Seen (None Seen) 04/16/24 Blood Type A Positive 04/16/24 Antibody Screen NEGATIVE 04/16/24 Testing Electrocardiogram Date: 09/30/23 NSR, rate 61 bpm Chest X-Ray Date: 09/30/23 No acute process. Echocardiogram Date: 07/19/23 EF 55-60% Mild LVH Mild mitral regurgitation Mild aortic regurgitation Cardiac Catheterization Date: 11/14/23 Left main: minimal luminal irregularities LAD: mild disease; prox LAD to mid LAD 10% stenosis LCx: minimal luminal irregularities RCA: minimal luminal irregularities, proximal tubular 30% stenosis "Mild ectasis, mild CAD"
--- NOTE | 2024-04-29 06:31 | History & Physical Bridge Note ---
Date of Service April 29, 2024 History & Physical Bridge Note I have examined the patient, reviewed the History & Physical and in the interval since the performance of the History & Physical I have noted the following changes of clinical significance: reviewed meds and risks. consent and site verified.no changes noted
[2024-04-29] MEDS: FAMOTIDINE 20 MG TAB PO SCH (07:20)
[2024-04-29] MEDS: ACETAMINOPHEN 500 MG TAB PO SCH ×2 (07:20→13:52)
[2024-04-29] MEDS: LR 500ML BOLUS, THEN 15ML/HR IV SCH (07:21)
[2024-04-29] MEDS: LR 60ML/HR IV SCH (07:21)
[2024-04-29] MEDS ORDERED: MIDAZOLAM HCL 1 MG/ML 2ML VIAL ONE (07:27)
[2024-04-29] MEDS ORDERED: fentaNYL citrate PF 100 MCG/2 ML VIAL ONE (07:27)
[2024-04-29] MEDS ORDERED: PROPOFOL IV EMULSION 10 MG/ML 20 ML VIAL IV ONE ×4 (07:27→10:47)
[2024-04-29] MEDS ORDERED: ATROPINE SULFATE 0.1 MG/ML 10ML SYR IV PRN (08:14)
[2024-04-29] MEDS ORDERED: ONDANSETRON INJ 2 MG/ML 2 ML VIAL IV PRN ×2 (08:14→11:20)
[2024-04-29] MEDS ORDERED: fentaNYL citrate PF 100 MCG/2 ML VIAL IV PRN (08:14)
[2024-04-29] MEDS ORDERED: ePHEDrine sulfate 50 MG/ML AMP IV PRN (08:14)
[2024-04-29] MEDS ORDERED: HYDROmorphone INJ 2 MG/ML SYR/VIAL IV PRN (08:14)
[2024-04-29] MEDS: TRANEXAMIC ACID 1,000 MG **IV Pre-op IV SCH (09:08)
[2024-04-29] MEDS: ceFAZolin 3000MG 3,000 MG/72.5 ML BAG IV SCH (09:26)
[2024-04-29] MEDS ORDERED: KETAMINE HCL 10MG/ML SYR ONE (09:37)
[2024-04-29] MEDS: ORTHO JOINT ANESTHETIC ONE (10:03)
[2024-04-29] MEDS ORDERED: ePHEDrine sulfate 50 MG/ML AMP ONE (10:39)
[2024-04-29] MEDS ORDERED: ONDANSETRON INJ 2 MG/ML 2 ML VIAL ONE (10:42)
[2024-04-29] MEDS: TRANEXAMIC ACID 1,000 MG **IV Intra-op IV SCH (10:44)
[2024-04-29] MEDS: ROPIV 0.5% 246mg, Ketorolac 30mg, EPINEPHrine 0.5mg in NSS INFIL SCH (10:46)
--- NOTE | 2024-04-29 11:08 | Post Operative Brief Note ---
Immediate Post Op Note Date of Surgery April 29, 2024 Pre & Post Diagnosis Operation Date: 04/29/24 08:50 <No d osteoarthritis right knee with flexion varus deformity pre and postop diagnosis same whitley on this case meets the specified criteria> I identified the patient and participated in the time-out.: Yes Procedure Operation Date: 04/29/24 08:50 <No data on this case meets the specified criteria> Cemented right total knee replacement Surgeon Theodore Yuan MD Music Writer Michael/Heron. Estimated Blood Loss 100 Findings Consistent with Post-Op Diagnosis Severe osteoarthritis with marked limitation of knee extension Fluids See anesthesia report Complications None
--- NOTE | 2024-04-29 11:11 | Operative Report ---
Post Operative Report Pre & Post Diagnosis Operation Date: 04/29/24 08:50 <No data on this case meets the specified criteria> Osteoarthritis right knee with flexion varus deformity pre and postop diagnosis same I identified the patient and participated in the time-out.: Yes Procedure Operation Date: 04/29/24 08:50 <No data on this case meets the specified criteria> Cemented right total knee replacement Surgeon Theodore Yuan MD Dermatology Physician Assistant Michael/Heron. Estimated Blood Loss 100 Findings Consistent with Post-Op Diagnosis Severe tricompartmental osteoarthritis particular patellofemoral and medial. Marked varus and flexion deformity Fluids See anesthesia report Specimens Bone pathology Drains None Complications None Indications Severe pain grade 4 changes asked by x-ray failed conservative management Description of Procedure After the patient was appropriate notified site verified consent verified antibiotics confirmed has been given the right lower extremity was prepped and draped use routine fashion. Should be noted he had an external rotation contracture of his hip and a 10 degree flexion contracture of his knee with a marked varus alignment. Tourniquet was inflated to 275 mmHg after exsanguination limb with a rubber urgent bandage for total of 63 minutes. Midline exposure was utilized parapatellar arthrotomy performed had a huge amount of synovitis this was all resected large osteophytes resected all around the margin of the femur and medial tibia. Care was taken to protect the collateral ligaments. The cruciates were resected tibia subluxated the menisci resected. The distal femur was then entered. Distal femur then resected 11 mm proximal tibia 4 mm the extension gap was excellent with a 6 mm spacer. Femur was sized to a 7 appropriate anterior posterior condylar and chamfer cuts made. The flexion gap was checked it was good. Box cut was then made with a size 7 femur. It fit well. Tibia was then broached and reamed for a size 7. 6 mm spacer fit well the knee was stable in full extension mid range flexion full flexion. The patella tracked well. Patella was resected leaving 15 to 16 mm. A 41 button was then seated appropriate holes made. Everything tracked well. Ortho mix was injected all around the knee. All trial elements were then removed the knee soaked in Betadine for 3-1/2 minutes the wound was then irrigated and the permanent cemented into position tibia femur patella in that order at 12 minutes of tourniquet deflated minor bleeding points controlled lecture cautery at 14 minutes knee was flexed there was no major cement removal required the trial spacer was removed there is nothing posteriorly. Was then irrigated again with Pulsavac Betadine and the permanent liner seated the knee reduced and closed at 40 degrees of flexion with #2 Vicryl 2-0 Vicryl and standstill clips. EBL was roughly 100 cc crystalloid per anesthesia pathology pending on bone x-rays pending. Summary of implants size 7 right femur posterior cruciate substituting size 7 rotating platform tray size 41 patella size 7 posterior cruciate substituting insert 6 mm thick rotating platform these are all DePuy ATT UNE knee system. EBL 100 cc crystalloid per anesthesia bone pathology pending x-rays pending. DVT prophylaxis per protocol. I attest to the content of the Intraoperative Record and any orders documented therein. Any exceptions are noted below.
--- NOTE | 2024-04-29 11:13 | Discharge Summary ---
Date of Service April 30, 2024 Admission HPI Per Admitting Provider Severe pain with flexion varus deformity right knee Principal Diagnosis Osteoarthritis right knee Discharge Data Allergies Allergy/AdvReac Type Severity Reaction Status Date / Time No Known Allergies Allergy Verified 04/29/24 07:17 Vaccinations None Consultations None Procedures Performed Operation Date: 04/29/24 08:50 Actual Procedures p Right Total Knee Arthroplasty, Cemented(Right) - Theodore Yuan MD Ordered Studies 04/29/24 05:00 US - OR guided needle placemen Routine Hospital Course (1) Status post right knee replacement: Care management plan for total knee replacement right Total Time Total Time Spent Total Time Spent (In Minutes): 5 Discharge Plan Discharge Items Patient Disposition: Home - Home Health Services Reason For Visit: Right Knee Degenerative Joint Disease Discharge Diagnosis: Status post right knee replacement for osteoarthritis right knee Activity: Per Instructions section Lifting: Wait until after follow-up appointment Bathing: Keep incision dry Sexual Activity: Wait until after follow-up appointment Exercise/Sports: Wait until after follow-up appointment Driving/Machine Use: No driving until cleared by Dr. Yuan Weightbearing: Full weightbearing Non-emergency contact: Surgeon Call non-emergency contact if: you have any medication questions, your temperature is above 101, your wound has increased redness, your wound has increased drainage and your wound pain has increased Follow-up/Referrals: Jean Myers D.O. [Primary Care Provider] - Diet: Regular Addtl Attending Provider Instructions: New Medicine: * You will likely be taking one or more of these medications: 1. Percocet - Take, as directed, when you need it, every four to six hours to control your pain. 2. Iron Sulfate - Take 1x each day for the month after surgery to help you replace the blood lost during surgery. 3. Eliquis - Thins your blood to lessen the chance of forming a blood clot. * The most common side effects of pain medicine and iron are nausea and constipation. If nausea or constipation is too much of a problem or if you have any questions about your new medicines or doses, call [facility] at . We will try to help you manage these issues. "VERY IMPORTANT TO READ AND REVIEW" Blood Clots and Blood Thinning Medicine: * You are given Eliquis during the immediate post-operative period to lessen the risk of blood clots forming in your legs and/or lungs. It is usually given for 4 weeks after surgery. Pain: * The immediate post-operative period after knee replacement surgery is often quite painful. * You are given a prescription for pain medicine. You should take it, as directed, when you need it, especially before physical therapy and before going to bed. Pain that interferes with sleep is very common and can last several months. * You will likely need pain medicine for the first four to six weeks. It will not stop all of the pain. The pain will lessen and as you feel better, you may change to milder pain medicine such as Tylenol. * The most common side effects of pain medicine are nausea and constipation, so don't take more than you need. Physical Therapy: * You will have physical therapy two or three times each week for four to six weeks after your surgery in order to regain your knee range of motion and to retrain your knee to work properly. * It is just as important to make sure you are getting your knee perfectly straight as it is to regain your knee bend. * Taking a pain pill an hour before therapy can help you have a more productive and comfortable therapy session if needed. Home Exercise: * You were shown a series of exercises (heel props, heel slides, etc.) in the hospital. Do these exercises three to four times each day including the exercises you were shown in physical therapy. Walking: * Get up and walk several times each day. For the first four weeks, try not to stand or walk for more than one hour at a time. If you do stand or walk for more than one hour, you will not hurt anything, but your knee and leg will likely swell. * As you feel comfortable, you may change from the walker or crutches to a cane and then to independent walking. SELF CARE INSTRUCTIONS AFTER TOTAL KNEE REPLACEMENT A. You may need to continue a physical therapy program after discharge from the hospital. There are several options available to you. Your doctor will assist you in selecting the best one for you. 1. An out-patient facility 2 to 3 times a week for therapy or home therapy. 2. Continue working on all exercises taught to you in the hospital. Your goals should be to increase bending of your knee to 90 degrees and beyond and to fully straighten your knee. B. You may progress at your own pace from walking with a walker or crutches to a cane; then to no assistive devices. C. Make walking a part of your daily routine. Be up as much as comfortable with rest periods throughout the day. Rest with leg elevation is very important. Use the ice wrap frequently for the first 3-4 weeks. D. There are no restrictions on activities. You may ride in a car, shop, participate in lean facilitator and all social activities. E. Wear the long elastic stockings (CLEMENTE hose) 20 hours a day for six weeks after surgery. They can be removed several times a day for laundering and for a shower. F. Do not place a pillow behind your knee when resting. A pillow at your ankle is okay. G. You may return to previous diet. VERY IMPORTANT TO READ AND REVIEW A. Take Eliquis (blood thinning medication) as directed by your doctor. B. There are a few signs you need to watch for after you are home. Call [facility] if you notice any of the followin. Increased severe knee pain. Some pain is expected especially when you exercise. 2. Increased swelling in your leg or knee; pain or swelling of the calf muscle in either lower leg. 3. Any fluid drainage from the incision. 4. Shortness of breath or chest pain. C. Please call [facility] at if you have any concerns or questions about your operation or recovery. The doctor or his nurse will return your call promptly. D. You must take antibiotics before dental work, bladder, bowel or other surgery. Call the office to obtain a prescription at least 2 days prior to your appointment. * CALL IF INCREASED PAIN, REDNESS, DRAINAGE OR FEVER GREATER THAT 101. * Sutures should be removed 12-14 days after surgery unless you are on chronic steroids, then it will be 14-18 days after surgery. Call your doctor if: * Temperature above 101 degrees F. * Pain not relieved by pain medicine ordered. * Increased drainage or redness from incision. * Notify your doctor with any questions or concerns. MEDICATIONS: * Please take your prescriptions as instructed at your pre-op appointment and/or see medication discharge instructions listed above. * If concerns develop, call your physician's office at . SPECIAL CARE INSTRUCTIONS: * Ice/Elevate as instructed. * Keep dressing clean, dry, intact. * Your surgical extremity may be discolored due to prepping agents used on the skin. A bluish-green tint is a normal variant and should not cause alarm. Call your doctor at [phone] if: * Temperature above 101 degrees * Pain not relieved by pain medicine ordered * There is increased drainage or redness from any incision * You have any unanswered questions, problems or concerns. FOLLOW UP VISIT: * If not already scheduled, please call the office at to schedule a follow-up appointment. Pending Studies at Discharge: Yes Studies:: bone pathology Stand-Alone Forms: [facility] [place], Smoking Cessation Medications and DC Order Prescriptions: No Action Descovy 200-25 mg Tablet 1 tab PO QAM Flintstones Multivitamin Tablet,Chewable 1 tab PO QAM cyanocobalamin (vitamin B-12) 1,000 mcg/mL Solution 1,000 mcg IM MONTHLY ferrous sulfate 325 mg (65 mg iron) Capsule, Extended Release 325 mg PO QAM Medical Marijuana 1 dose PO DIRECTED PRN (Reason: Pain) metoprolol succinate 50 mg Tablet Extended Release 24 Hr 25 mg PO BID Admission Data Admit Date/Time: 04/29/24 11:20 Attending Provider: Theodore Yuan Admit Provider: Theodore uYan Primary Care Provider: Jean Myers
--- NOTE | 2024-04-29 11:13 | Orthopedic Progress Note ---
Date of Service April 29, 2024 Orthopedic Progress Note Patient underwent right total knee replacement. Family contacted. Tolerated procedure well. No issues during the procedure. X-rays pending. Continue care pathway. Right total knee replacement. EBL 100 cc or less crystalloid per anesthesia.
--- NOTE | 2024-04-29 11:18 | Operative Report ---
Post Operative Report Pre & Post Diagnosis Operation Date: 04/29/24 08:50 Pre-Op Diagnosis: Right Knee Degenerative Joint Disease Post-Op Diagnosis: Right Knee Degenerative Joint Disease I identified the patient and participated in the time-out.: Yes Procedure Operation Date: 04/29/24 08:50 Actual Procedures p Right Total Knee Arthroplasty, Cemented(Right) - Theodore Yuan MD Surgeon Theodore Yuan MD Audioprosthologist Michael/Heron. Estimated Blood Loss 100 Findings Consistent with Post-Op Diagnosis Specimens Bone pathology Description of Procedure Patient was brought to the operative suite where he underwent anesthesia. The right lower extremity was then prepped and draped in the usual sterile fashion. A surgical timeout was performed. The patient underwent a right total knee arthroplasty, please see Dr. Yuan's operative report for full details. I was present and assisted with patient positioning, limb positioning, surgical approach, hardware placement, wound closure, postoperative dressing placement. The patient was awakened and taken to the recovery room in stable condition. I attest to the content of the Intraoperative Record and any orders documented therein. Any exceptions are noted below.
--- NOTE | 2024-04-29 11:19 | Operative Report ---
Post Operative Report Pre & Post Diagnosis Operation Date: 04/29/24 08:50 Pre-Op Diagnosis: Right Knee Degenerative Joint Disease Post-Op Diagnosis: Right Knee Degenerative Joint Disease I identified the patient and participated in the time-out.: Yes Procedure Operation Date: 04/29/24 08:50 Actual Procedures p Right Total Knee Arthroplasty, Cemented(Right) - Theodore Yuan MD Surgeon Theodore Yuan MD Assisted Living Associate Michael/Heron. Estimated Blood Loss 100 Findings Consistent with Post-Op Diagnosis Specimens Right knee bone and soft tissue Description of Procedure I was present during the entire case assisting with positioning, prepping, draping, wound retraction, wound closure and dressing application. Fellow also present. I served as an extra set of hands during the case. Please see Dr. Yuan procedure note for specifics of the case. I attest to the content of the Intraoperative Record and any orders documented therein. Any exceptions are noted below.
[2024-04-29] MEDS ORDERED: diphenhydrAMINE 50 MG/ML VIAL IV PRN (11:20)
[2024-04-29] MEDS ORDERED: HYDROmorphone INJ 0.5 MG/0.5 ML SYR IV PRN (11:20)
[2024-04-29] MEDS ORDERED: METOCLOPRAMIDE HCL INJ 5 MG/ML 2 ML VIAL IV PRN (11:20)
[2024-04-29] MEDS ORDERED: VANCOMYCIN CONSULT ACTIVE PRN (11:20)
[2024-04-29] MEDS ORDERED: NALOXONE HCL 0.4 MG/1 ML VIAL/CARP IV PRN (11:20)
[2024-04-29] MEDS ORDERED: bisacodyL 10 MG SUPP PR PRN (11:20)
[2024-04-29] MEDS ORDERED: TAMSULOSIN HCL 0.4 MG CAP PO PRN (11:20)
[2024-04-29] MEDS ORDERED: MAGNESIUM HYDROXIDE SUSP 30 ML UDC PO PRN (11:20)
[2024-04-29] MEDS ORDERED: ALUMINUM/MAGNESIUM SUSP 30 ML UDC PO PRN (11:20)
--- NOTE | 2024-04-29 11:40 | XRay Report ---
XR knee RT 1 or 2V routine CLINICAL HISTORY: S/P R TKA COMPARISON: Right knee radiographs September 30, 2023. FINDINGS: Alignment of the total right knee arthroplasty is anatomic. There is no periprosthetic fra cture or unexpected radiopaque foreign body. There are skin yeny. IMPRESSION: Expected findings following total right knee arthroplasty. ACT 112: Negative or not required by law. Electronically signed by: Abel Hernandez M.D. 04/29/2024 11:39 AM
--- NOTE | 2024-04-29 12:12 | Anesthesiology Progress Note ---
Date of Service April 29, 2024 Anesthesia Post Procedure Vital Signs Vital Signs: Temp Pulse Pulse Resp BP Pulse Ox O2 Del Method 04/29/24 11:55 36.7 C 601 H 14 143/68 H 92 Room Air 04/29/24 11:45 68 14 128/81 94 Room Air 04/29/24 11:35 70 15 135/71 94 Room Air 04/29/24 11:25 70 19 124/79 98 Room Air 04/29/24 11:19 36.1 C L 75 14 139/76 97 Oxymask 04/29/24 07:13 36.9 C 74 20 130/86 96 Room Air O2 Flow Rate 04/29/24 11:55 04/29/24 11:45 04/29/24 11:35 04/29/24 11:25 04/29/24 11:19 6 04/29/24 07:13 Transfer of Care Handoff Completed per policy Notes Mental Status: alert / awake / arousable and participated in evaluation Patient Amnestic to Procedure: Yes Nausea / Vomiting: adequately controlled Pain: adequately controlled Airway Patency, RR, SpO2: stable & adequate BP & HR: stable & adequate Hydration State: stable & adequate Anesthetic Complications: no major complications apparent and Pt Satisfied with anesthetic care
--- NOTE | 2024-04-29 12:20 | Anesthesiology Progress Note ---
Date of Service April 29, 2024 Anesthesia Post Procedure Vital Signs Vital Signs: Temp Pulse Pulse Resp BP Pulse Ox O2 Del Method 04/29/24 11:55 36.7 C 601 H 14 143/68 H 92 Room Air 04/29/24 11:45 68 14 128/81 94 Room Air 04/29/24 11:35 70 15 135/71 94 Room Air 04/29/24 11:25 70 19 124/79 98 Room Air 04/29/24 11:19 36.1 C L 75 14 139/76 97 Oxymask 04/29/24 07:13 36.9 C 74 20 130/86 96 Room Air O2 Flow Rate 04/29/24 11:55 04/29/24 11:45 04/29/24 11:35 04/29/24 11:25 04/29/24 11:19 6 04/29/24 07:13 Transfer of Care Handoff Completed per policy Notes Mental Status: alert / awake / arousable and participated in evaluation Patient Amnestic to Procedure: Yes Nausea / Vomiting: adequately controlled Pain: adequately controlled Airway Patency, RR, SpO2: stable & adequate BP & HR: stable & adequate Hydration State: stable & adequate Neuraxial Anesthesia: was administered and sensory block is resolving Anesthetic Complications: no major complications apparent and Pt Satisfied with anesthetic care
[2024-04-29] MEDS: KETOROLAC TROMETHAMINE 15 MG/ML VIAL IV SCH (12:36)
[2024-04-29] MEDS: VANCOMYCIN HCL 2,000 MG in SODIUM CHLORIDE 0.9% 500 ML IV ONE (13:52)
--- NOTE | 2024-04-29 14:29 | Orthopedic Progress Note ---
Date of Service April 29, 2024 Assessment & Plan Admission and Anticipated Discharge Date Admission Date: April 29, 2024 Orthopedic Progress Note Patient awake and alert postop check. Denies chest pain shortness of breath fever chills nausea vomit or headache. Vital signs are stable he is afebrile. Neurovascular check femoral sciatic nerve is normal wound dressing clean dry and intact. Calves nontender. Postop x-rays look excellent. Assessment well doing well saline lock IV taking p.o. well. Mobilize. DVT prophylaxis to begin tomorrow.
[2024-04-29] MEDS: oxyCODONE HCL IR 5 MG TAB (IMMEDIATE RELEASE) PO PRN (16:51)
[2024-04-29] MEDS: ceFAZolin 2000MG 2,000 MG/15 ML SYR IV SCH (16:51)
--- OUTSIDE RECORDS SUMMARY | 2024-04-29 21:37 | External Medical Summary | Continuity of Care Document ---
Author Name Unknown Organization [id number] Address [address] [place] [id number] Care Team Providers Care Ginner Name Role Phone Jean Myers Primary Care Physician Unav ailable Encounter [facility] [id number] Date(s): 04/16/24 - 04/16/24 [facility] [address] [id number] [facility] [address] [place] [id number] Encounter Diagnosis Preop examination(Discharge Diagnosis) - 04/16/24 Primary osteoarthritis of right knee(Discharge Diagnosis) - 04/16/24 Discharge Disposition: Home or Self Care Attending Physician: JAYA Mcleod, Gurinder Everett Referring Physician: MD Kwabena, Theodore Mckenna Allergies, Adverse Reactions, Alerts Substance Criticality Severity Reaction Reaction Severity Status penicillins Unable to assess criticality Mild Urticaria Resolved Medications amoxicillin 500 mg oral capsule Start: 11/12/22 8:50:00 AM EDT, 4 cap, PO, As indicated, Disp# 12 cap, Refills: 3, one hour before dental and other procedures as directed, Pharmacy: [facility]/pharmacy #[id number] Start Date: 11/12/22 Status: Ordered calcium (as carbonate) 500 mg oral tablet Start: 05/15/22 9:46:00 AM EST Start Date: 05/15/22 Status: Ordered Descovy Start: 05/15/22 9:21:00 AM EST Start Date: 05/15/22 Status: Ordered Medical Marijuana Start: 09/30/23 9:27:00 AM EDT Start Date: 09/30/23 Status: Ordered METOPROLOL SUCCINATE ER 50MG TB24 Start: 04/16/24 1:24:00 PM EST, METOPROLOL SUCCINATE ER 50MG TB24 Start Date: 04/16/24 Status: Ordered multivitamin Start: 05/07/22 8:42:00 AM EST, 1 tab, PO, Daily Start Date: 05/07/22 Status: Ordered potassium bicarbonate Start: 05/15/22 9:45:00 AM EST Start Date: 05/15/22 Status: Ordered Vitamin B12 Start: 05/15/22 9:47:00 AM EST Start Date: 05/15/22 Status: Ordered Mental Status 04/16/24 Barriers to Learning one year None evide nt Mandatory Health Literacy Documentation Yes Health Literacy Communication Barriers N ever Primary Language Slovak Problem List Condition Confirmation Course Effective Dates Status H ealth Status Informant S/P total hip arthroplasty Confirmed Active Osteoarthritis of left hip Confirmed Active Osteoarthritis of right hip Confirmed Active Primary osteoarthritis of right knee Confirmed Active Surgical followup Confirmed Active Diagnosis Diagnosis Type Effective Dates Health Status Clinical Service Informant Primary osteoarthritis of right knee Discharge Diagnosis 04/16/24 Preop examination Discharge Diagnosis 04/16/24 Procedures Procedure Date Related Diagnosis Body Site Status TOTAL HIP ARTHROPLASTY 1 05/23/22 Completed 1Left Total Hip Arthroplasty with Dual Mobility Implants--Uncemented Vital Signs Most recent to oldest [Reference Range]: 1 Height 173.5 cm (04/16/24 1:31 PM) Patient Weight 143.2 kg (04/16/24 1:31 PM) Body Mass Index 47.57 kg/m2 (04/16/24 1:31 PM) Temperature [36.5-37.9 DegC] 36.4 DegC *LOW* (04/16/24 1:31 PM) Respiratory Rate 30 br/min (04/16/24 1:31 PM) Blood Pressure 152/82mmHg 1 (04/16/24 1:31 PM) 1Result Comment: Pt reports he forgot to take BP medication this morning Social History Social History Type Response Smoking Status Never smoked cigaret jag Sex Sex Representation Male (finding) Pre-OP H & P * JAYA Shelby, Justo: PERFORM, MODIFY Event Display: Pre-OP H & P Authored Date: [id number] PRE-OPERATIVE HISTORY AND PHYSICAL Name: LOW AYALA Patient Number: [id number] : 1960 Date of Service: 04/16/2024 PRE-OP Diagnosis: Right knee DJD Planned Procedure: Right knee total knee arthroplasty Chief Complaint: Right knee pain History of Present Illness (including history relevant to procedure): This 63-year-old male presents today for his preoperative history and physical. Patient was initially scheduled to undergo this procedure on 10/16/2023, however he canceled it due to other health concerns. Patient also had a cardiac catheterization performed in November which further delayed his plans for this procedure. Patient has a longstanding history of right knee pain. Symptoms have become worse over the last year. He has tried viscosupplementation injections in the past, without lasting relief. His pain is worse with weightbearing. It is affecting his ADLs. He has difficulty with standing and ambulation. Denies catching or locking. Preoperative imaging has been obtained. He notes peripheral neuropathy in his lower extremities which is unrelated to his knee. Review Of Systems: A total of 10 systems were reviewed and are significant only for below stated conditions. Family history: Significant for heart disease, otherwise unremarkable Social history: No tobacco use, occasional EtOH use. Uses marijuana. 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 Past Medical History: Problems: Primary osteoarthritis of right knee S/P total hip arthroplasty Atrial fibrillation Obesity Degenerative disease of the spine Osteoarthritis of right hip Osteoarthritis of left hip Procedure History Procedure Procedure Date Comments TOTAL HIP ARTHROPLASTY Bariatric surgery Appendectomy Tonsillectomy Right Achilles tendon repair Lumbar back surgery Left knee surgery x 3 Cardiac catheterization 05/23/20222016 - Left Total Hip Arthroplasty with Dual Mobility Implants--Uncemented Left total knee arthroplasty Vitals: Last Updated 04/16/24 13:31 Weights: Last Updated 04/16/24 13:31 Date Temp Pulse BP RR SpO2 FIO2 Date Wt(kg) Wt(lb) 04/16 13:31 36.4 152/82 30 95 04/16 13:31 143.2 315 04/16 13:31 143.2 315 24 Hr Tmax: 36.4 at 04/16 13:31 Initial Wt: 04/16 143.2 kg 315 lb Physical Exam: (relevant to the procedure, including heart and lung evaluation) General: Well-developed, well-nourished, obese middle-age male, in no acute distress. Sitting in a chair. Alert and oriented. HEENT: Normocephalic, atraumatic. Eyes PERRLA, EOMI. Nares patent bilaterally without nasal drainage. Oropharynx with moist oral mucosa. Fair dentition. Neck: No JVD. Cardiac: RRR. No MGR. Peripheral pulses are 2+. Lungs: Clear to auscultation bilaterally. No crackles, rhonchi, or wheezing. Good air movement. Abdomen: Obese. Bowel sounds present x 4. Soft nontender. No organomegaly. No masses. Extremities: Right knee evaluation reveals a slight varus deformity. He has full terminal extension. Flexion to around 100 degrees, somewhat limited by body habitus. He has pain with motion of the knee. There is focal pain with palpation over the medial and lateral joint lines. Medial is worse. Stable collateral ligaments. No palpable defect or pain in the patellar tendon or quadriceps tendon. Mild crepitus is palpable with motion. Ambulating today with an antalgic gait. Neuro: Gross sensation is intact across the upper legs and knees by soft touch. He has decreased subjective sensation through the mid dwyer and significant decrease in sensation across his feet. Skin: Warm and dry with good turgor. No rashes. No ecchymosis or erythema. No intra-articular effusion in the right knee. Mild venous stasis changes present on both lower legs. He has peripheral edema in the lower extremities. Studies of radiology results (relevant to the procedure): Radiographic imaging obtained today of the right knee shows end-stage DJD with periarticular osteophytes, subchondral sclerosis, and joint space narrowing. ASSESSMENT: Right knee end-stage DJD PLAN: Patient is scheduled to undergo this procedure at the [facility] with Dr. Yuan on April 29, 2024. Risks and complications of the procedure such as: Infection, bleeding, pain, scarring, nerve blood vessel damage, weakness, wound problems, stiffness, incomplete reli ef of symptoms, hardware failure, hardware loosening, wear, fracture, tendon or ligament injury, blood clots, embolism, cardiac, stroke and were explained to the patient at his visit today and informed consent for the procedure was obtained. We will need to obtain preoperative medical clearance from the patient's primary care provider. He states that he has an appointment scheduled for nextweek. 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 Patient is scheduled to meet with anesthesia at the hospital later this afternoon. While there she will obtain a CBC with differential, complete metabolic panel, PT/INR, PTT, blood type and screen, urinalysis, urine culture and sensitivity, a chest x-ray and an EKG. During today's visit we reviewed the total knee packet.I provided the patient with paperwork to obtain obtaining a handicap placard for his vehicle. I provided him with information about lectures offered by [facility] in regards to joint replacement surgery. Patient has a walker from his previous hip and knee surgeries. He also states that he has a shower bench and a raised toilet seat. We discussed discharge planning from the hospital. Patient states he will most likely do in-home physical therapy for the first 2 weeks before transitioning to outpatient physical therapy. I advised the patient that he will be provided with a pres cription for narcotic pain medication for postoperative pain control. He will be on Eliquis twice daily for 4 to 6 weeks postoperatively for DVT prophylaxis. He is scheduled for his 2-week postoperative follow-up visit with Gurinder on May 14 at 1:30 PM. This chart was completed utilizing [employer] voice recognition software. Grammatical errors,random word insertions, pronoun errors, and in complete sentences are an occasional consequence of the system. Any questions or concerns about the content, text, or information contained within the body of this dictation should be addressed directly to the physician for clarification. Electronic Signature on File CC: Jean Myers DO [address] [place] [id number] * Electronically Reviewed/Signed by: Justo Shelby PA-C Author Signature Dt/Tm:04/16/2024 02:20 PM Division of Sports Medicine Electronically Reviewed/Signed by: Justo Shelby PA-C Cosigner Signature Dt/Tm: 04/16/2024 02:23 PM Division of Sports Medicine Electronically Reviewed/Signed by: MD Marc Burnett Signature Dt/Tm: 04/16/2024 03:56 PM Crimper Assembler for Clinical Affairs, [facility] Professor in Orthopaedics Social Science Teacher, [facility] Patient Care team information Care Team Personnel Name: MD Myers Anthony J Position: Referring Member Role: Primary Care Provider Address: [address] [place] [address] [place]
[2024-04-29] MEDS: METOPROLOL SUCC 25MG EXT REL TAB PO SCH (21:53)
[2024-04-29] MEDS: SENNA 8.6 MG TAB PO SCH (21:53)
[2024-04-29] MEDS: DOCUSATE SODIUM 100 MG CAP PO SCH (21:54)
[2024-04-30 06:37] LABS: Hematocrit (blood only) 32.5 % (42.0-52.0); Hemoglobin 11.1 g/dl (14.0-18.0); Mean Corpuscular Hemoglobin 34.7 pg (25.0-34.0); Mean Corpuscular Hgb Conc 34.2 g/dL (32.0-36.0); Mean Corpuscular Volume 101.6 fL (80.0-100.0); Mean Platelet Volume 9.2 fL (9.4-12.4); Platelet Count 154 K/uL (130-400); RDW Coefficient of Variation 12.2 % (11.5-14.5); RDW Standard Deviation 45.6 fL (36.4-46.3); White Blood Count 7.58 K/ul (4.8-10.8)
[2024-04-30 06:49] LABS: BUN Creatinine Ratio 12.4 (10-20); Calcium 8.3 mg/dl (8.6-10.3); Creatinine Clr Calc Pharmacy 109.3 ml/min; Potassium 4.4 mmol/L (3.5-5.1)
[2024-04-30 07:24] VITALS: RESP 16; TEMP 98.4; O2SAT 95
--- NOTE | 2024-04-30 07:52 | Orthopedic Progress Note ---
Date of Service April 30, 2024 Assessment & Plan Admission and Anticipated Discharge Date Admission Date: April 29, 2024 Orthopedic Progress Note Postop day #1 status post right total knee replacement. Patient is sitting up in his chair. He is ambulating well. He denies chest pain shortness of breath fever chills nausea vomiting or headache. Vital signs are stable he is afebrile. Neurovascular check from sciatic nerve is normal. Wound dressing clean dry and intact. Calves nontender. A.m. labs are excellent. Assessment doing well discharged home today after PT OT and dressing change. Follow-up in 2 weeks. Discontinue the knee immobilizer after Saturday evening.Begin DVT PE prophylaxis today.
[2024-04-30] MEDS: APIXABAN 2.5 MG TAB PO SCH (09:35)
[2024-04-30] MEDS: MULTIVITAMIN TAB PO SCH (09:35)
[2024-04-30] MEDS: FERROUS SULFATE 325 MG TAB PO SCH (09:35)
[2024-04-30 09:44] VITALS: BP 115/70; PULSE 69
--- NOTE | 2024-04-30 10:56 | Orthopedic Progress Note ---
Date of Service April 30, 2024 Assessment & Plan (1) Status post right knee replacement: Plan: The patient was educated regarding today's findings. Conservative care measures were discussed. His dressing was changed today by me. CLEMENTE stocking was applied. Weight-bear as tolerated. He will use his walker for ambulation. Ice the knee frequently to reduce pain and swelling. Prescriptions for Eliquis 2.5 mg twice daily and Percocet 5/325 mg every 6 hours were sent to his pharmacy. Written discharge instructions were provided. Call the office with any other concerns. He will let me know tomorrow if he needs a new prescription for Percocet before the end of the weekend. Follow-up with me in 2 weeks as scheduled for staple removal in the office. Admission and Anticipated Discharge Date Admission Date: April 29, 2024 Subjective This 64-year-old male is seen today in his room. He is 1 day status post right total knee arthroplasty. He thinks he is doing well. He is having some knee pain but it is tolerable. He denies any chest pain, shortness of breath, nausea, vomiting, or abdominal pain. He feels ready to go home. He has not seen PT yet. He is sitting in his bedside chair and has finished his breakfast. No additional complaints. Review of Systems Review of Systems: Unchanged from yesterday. Physical Exam Physical Exam: General: Well-developed, well-nourished, middle-aged male, in no acute distress. Obvious discomfort. Sitting in a bedside chair. Alert and oriented. Skin: Warm and dry with good turgor. Postsurgical dressings are in place on the right knee. Upon removal, there is scant dried blood on the inner dressings. He has no active bleeding from his knee. [place] are intact. Wound edges are well-approximated. No erythema or warmth. Expected postoperative edema. No ecchymosis yet. Musculoskeletal: Right knee evaluation reveals the above-stated edema. He has intact flexion and extension of the knee with some discomfort. He is able to perform a straight leg raise. Intact motor function of the ankle and toes. Neurologic: Gross sensation is intact across the right leg by soft touch. Peripheral pulses are 2+. Results & Data Vital Signs (Past 12 Hours) Vital Signs Temp Pulse Pulse Resp BP BP Pulse Ox 04/30/24 09:41 36.9 C 69 64 16 101/63 115/70 95 11/21/24 07:23 36.9 C 64 16 101/63 95 04/30/24 03:27 36.8 C 69 18 115/70 98 04/29/24 23:31 36.9 C 65 18 121/78 96 O2 Del Method 04/30/24 09:41 04/30/24 07:23 Room Air 04/30/24 03:27 Room Air 04/29/24 23:31 Room Air Laboratory Results CBC obtained today shows a white count of 7.58. H&H of 11.1 and 32.5. Platelets 154,000. Sodium 138, potassium 4.4, chloride 106, CO2 29. BUN of 12 with creatinine 0.97. Glucose this morning is 106.
[2024-05-10] MEDS ORDERED: CYANOCOBALAMIN 1000 MCG/ML VIAL IM SCH (09:00)
== END 2024-04-30 11:26 | disposition home health service (06) ==
LOC: 3E 06:42 → ASU 06:42